=== PATIENT | female | born 1970 | race African-American/Black ===

== ENCOUNTER 2021-05-11 01:35 | Emergency (ER) | payer SELFPAY ==
[~2021-05-11] VITALS: Ht 162.6 cm; Wt 61.0 kg
[2021-05-11] MEDS ORDERED: ONDANSETRON 4MG ODT PO STA (02:35)
[2021-05-11] MEDS ORDERED: MAGNESIUM/ALUMINUM HYDROXIDE/SIMETHICONE 30ML UDC PO STA (02:35)
[2021-05-11 07:45] VITALS: BP 108/63
== END 2021-05-11 07:51 | disposition home or self-care (01) ==
LOC: ER 01:35
DX: R10.13 Epigastric pain (principal); R11.2 Nausea with vomiting, unspecified
CPT/HCPCS: 99283